=== PATIENT | male | born 1985 | race Two or more races ===

== ENCOUNTER 2024-10-10 11:45 | Emergency (ER) | payer SELFPAY ==
[~2024-10-10] VITALS: Ht 160 cm; Wt 90.0 kg
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
[2024-10-10] MEDS: TETANUS-DIPTH-ACEL PERTUSSIS 0.5ML SYR Tdap IM ONE (12:10)
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
[2024-10-10 16:15] VITALS: BP 120/84; PULSE 112; RESP 18; TEMP 98.1; O2SAT 99
== END 2024-10-10 16:26 | disposition home or self-care (01) ==
LOC: ER 11:45
DX: S71.132A Puncture wound without foreign body, left thigh, initial encounter (principal); F17.210 Nicotine dependence, cigarettes, uncomplicated; F12.10 Cannabis abuse, uncomplicated; W34.09XA Accidental discharge from other specified firearms, initial encounter; Y93.89 Activity, other specified; Y92.89 Other specified places as the place of occurrence of the external cause; Y99.8 Other external cause status
CPT/HCPCS: 90471; 90715

== ENCOUNTER 2025-02-15 15:39 | Emergency (ER) | payer MEDICAID, OTHER ==
[~2025-02-15] VITALS: Ht 160 cm; Wt 85.5 kg
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
--- NOTE | 2025-02-15 16:30 | DVH ---
EXAM: XY R FOREARM XRAY CLINICAL HISTORY: Trauma COMPARISON: None TECHNIQUE: XY R FOREARM XRAY Findings/Impression: 2 views of the right forearm. Impacted comminuted fracture of the distal radius. Mildly displaced ulnar styloid fracture. Moderat e soft tissue edema. There is no evidence of dislocation, blastic, or lytic lesions. No radiopaque foreign bodies.
[2025-02-15 16:38] VITALS: BP 115/74; TEMP 97.7
[2025-02-15 16:45] VITALS: PULSE 68; RESP 18; O2SAT 98
[2025-02-15] MEDS: KETOROLAC TROMETH 60MG/2ML VIAL IM ONE (16:47)
[2025-02-15] MEDS ORDERED: HYDR-4902 PO (16:56)
[2025-02-15] MEDS ORDERED: IBUP-1455 PO (16:56)
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
== END 2025-02-15 17:02 | disposition home or self-care (01) ==
LOC: ER 15:39
DX: S52.611A Displaced fracture of right ulna styloid process, initial encounter for closed fracture (principal); S52.591A Other fractures of lower end of right radius, initial encounter for closed fracture; F10.90 Alcohol use, unspecified, uncomplicated; Z79.899 Other long term (current) drug therapy; Y04.8XXA Assault by other bodily force, initial encounter; Y93.89 Activity, other specified; Y92.89 Other specified places as the place of occurrence of the external cause; Y99.8 Other external cause status; Y90.9 Presence of alcohol in blood, level not specified
CPT/HCPCS: 29125; 73090; 73130; 96372; 99284; J1885